=== PATIENT | male | born 1995 | race Caucasian/White ===

== ENCOUNTER 2022-12-12 14:10 | Emergency (ER) | payer MEDICAID, SELFPAY ==
[2022-12-12 14:52] VITALS: BP 141/93; PULSE 122; RESP 18; TEMP 37.1; O2SAT 97; BMI 27.3
--- NOTE | 2022-12-12 14:52 | ED.GENADULT ---
HPI - General Adult General Chief complaint: General Medical Stated complaint: med refill Related Data Allergies Allergy/AdvReac Type Severity Reaction Status Date / Time No Known Allergies Allergy Verified 12/12/22 14:52 PMFSH Social History Social History Advance Directives: No Advance Directives Information Provided: Yes Physical Exam ED Vital Signs: Vital Signs - 24 hr 12/12/22 14:52 Temperature 98.7 F Pulse Rate 122 H Respiratory Rate 18 Blood Pressure 141/93 H Pulse Oximetry 97 Oxygen Delivery Method Room Air BMI result Body Mass Index 27.3 Course Course Course Narrative: RMRandy--27yo M with PMHx substance abuse on Suboxone (receives from [employer]) states he missed appointment yesterday for refill, last dose of Suboxone 2 days ago. Admits dose is 12mg daily denies drug use HIDALGO ordered Medical Decision Making Lab Data Labs: Lab Results 12/12/22 Range/Units 15:03 Urine Opiates Screen Not Detected (Not Detect) Urine Fentanyl Screen Not Detected (Not Detect) Ur Barbiturates Screen Not Detected (Not Detect) Ur Phencyclidine Scrn Not Detected (Not Detect) Ur Amphetamines Screen Not Detected (Not Detect) U Benzodiazepines Scrn Not Detected (Not Detect) Urine Cocaine Screen Not Detected (Not Detect) U Marijuana (THC) Screen Not Detected (Not Detect) Discharge Plan Discharge Clinical Impression: Encounter for monitoring Suboxone maintenance therapy Patient Disposition: Elopement Discharge Date/Time: 12/12/22 17:51
[2022-12-12 15:23] LABS: Amphetamine Screen Urine Not Detected (Not Detect); Barbiturates, Urine Not Detected (Not Detect); Benzodiazepines Screen Urine Not Detected (Not Detect); Cannabinoid Screen Urine Not Detected (Not Detect); Cocaine Screen Urine Not Detected (Not Detect); Fentanyl, urine Not Detected (Not Detect); Opiate Screen Urine Not Detected (Not Detect); Phencyclidine Screen Urine Not Detected (Not Detect)
== END 2022-12-12 17:51 | disposition left against medical advice (07) ==
PROVIDERS: Physician Assistant; Emergency Provider Emergency Medicine
DX: F11.20 Opioid dependence, uncomplicated (principal)
CPT/HCPCS: 80307; 99282; 99283